=== PATIENT | female | born 1955 | race Caucasian/White ===

== ENCOUNTER 2020-03-14 07:03 | Outpatient (REF) | payer OTHER, SELFPAY ==
[2020-03-14 07:22] LABS: COVID-19 Test Negative (Negative)
== END 2020-03-14 07:04 | disposition home or self-care (01) ==
LOC: HO.EMPCOV 07:03
PROVIDERS: PCP Internal Medicine; Visit Provider Internal Medicine
DX: Z20.828 Contact with and (suspected) exposure to other viral communicable diseases (principal)
CPT/HCPCS: 87635; C9803

== ENCOUNTER 2020-06-29 07:36 | Outpatient (REF) | payer OTHER, SELFPAY ==
[2020-06-29 08:17] LABS: COVID-19 Test Negative (Negative)
== END 2020-06-29 07:37 | disposition home or self-care (01) ==
LOC: HO.EMPCOV 07:36
PROVIDERS: Visit Provider Internal Medicine
DX: Z20.822 Contact with and (suspected) exposure to COVID-19 (principal)
CPT/HCPCS: 36415; 87635; C9803

== ENCOUNTER 2022-01-24 13:07 | Outpatient (REF) | payer OTHER, SELFPAY ==
--- NOTE | ~2022-01-24 | US_ITS ---
EXAMINATION: US LOWER EXTREMITY VENOUS (REFLUX EXAM), BILATERAL CLINICAL INDICATION: This is a 66-year-old female with history of varicose veins with inflammation. Leg swelling. COMPARISON: None. TECHNIQUE: Color flow triplex imaging and compression Doppler was performed to evaluate both the deep and the superficial systems bilaterally. To evaluate the superficial system, the examination was performed in the upright position. Color-flow Doppler ultrasound and compression ultrasound were utilized. In addition, maneuvers were utilized to demonstrate reflux. FINDINGS: 1. DEEP VENOUS ULTRASOUND OF THE RIGHT LOWER EXTREMITY: Common Femoral Vein: Compressible but with reflux of 2016 ms. Femoral vein: Compressible, normal color flow and augmentation. Popliteal Vein: Compressible, normal augmentation. Deep Reflux: There is evidence of reflux in the deep system in either the common femoral vein or the popliteal vein. There is no evidence of a Patricio's cyst. 2. SUPERFICIAL ULTRASOUND WITH DOPPLER OF RIGHT LOWER EXTREMITY: GREAT SAPHENOUS VEIN: Saphenofemoral Junction: 0.9 cm. There is no reflux. Mid Thigh: 0.3 cm. This area appears occluded with a history of previous thrombophlebitis. Above Knee: 0.3 cm. This area appears occluded with a history of previous thrombophlebitis. Below Knee: 0.3 cm. This area appears occluded with a history of previous thrombophlebitis. Mid Calf: 0.2 cm Ankle: 0.2 cm GSV REFLUX: No evidence of reflux. DUPLICATED GREAT SAPHENOUS VEIN: There is a 0.3 cm duplicated lateral great saphenous vein without reflux. SMALL SAPHENOUS VEIN: Proximal: 0.3 cm Distal: 0.2 cm SSV REFLUX: No evidence of reflux. VEIN OF GIACOMINI: None Imaged. PERFORATORS: There are 0.3 cm mid calf perforators with 1904 ms of reflux VARICOSITIES: There are 0.4 cm mid calf varicose veins without reflux. 3. DEEP VENOUS ULTRASOUND OF THE LEFT LOWER EXTREMITY: Common Femoral Vein: Compressible, normal respiratory variation and augmented flow. However, there appear to be chronic changes within the lumen suggesting previous deep vein thrombosis and recanalization. Femoral Vein: Compressible, but with reflux of 1220 ms. Popliteal Vein: Compressible, but with reflux of 1348 ms. Deep Reflux: There is evidence of reflux in the deep system in either the common femoral vein or the popliteal vein. There is no evidence of a Patricio's cyst. 4. SUPERFICIAL ULTRASOUND WITH DOPPLER OF LEFT LOWER EXTREMITY: GREAT SAPHENOUS VEIN: Saphenofemoral Junction: 0.8 cm. The reflux time is 984 ms. Proximal thigh: 0.5 cm. There is no reflux. Mid Thigh: 0.3 cm. The reflux time is 880 ms. Above Knee: 0.4 cm. There is no reflux. Below Knee: 0.3 cm. There is no reflux. Mid Calf: 0.3 cm. The reflux time is 1084 ms. Ankle: 0.2 cm. There is no reflux. GSV REFLUX: No evidence of reflux. DUPLICATED GREAT SAPHENOUS VEIN: None SMALL SAPHENOUS VEIN: Not seen SSV REFLUX: No evidence of reflux. VEIN OF GIACOMINI: None Imaged. 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 VARICOSITIES: There are 0.6 cm and 0.3 cm thigh varicose veins with 880 ms of reflux. There is a 0.3 cm calf varicose vein with greater than 3 seconds of reflux. US/US venous duplex LE BI IMPRESSION: 1. The right great saphenous vein appears occluded secondary to thrombophlebitis. No reflux is seen. 2. The right small saphenous vein appears patent without reflux. 3. The left great saphenous vein is patent with reflux at the saphenofemoral junction. 4. The left small saphenous vein is not seen. 5. There are bilateral varicose veins as noted.
== END 2022-01-24 13:08 | disposition home or self-care (01) ==
LOC: HO.US 13:07
PROVIDERS: PCP Internal Medicine; Visit Provider Surgery Vascular Surgery
DX: I83.12 Varicose veins of left lower extremity with inflammation (principal)
CPT/HCPCS: 93970